=== PATIENT | female | born 1975 | race Caucasian/White ===

== ENCOUNTER 2022-11-23 04:37 | Emergency (ER) | payer OTHER, SELFPAY ==
[2022-11-23 04:42] VITALS: PULSE 86; RESP 21; TEMP 37.2; O2SAT 100; BMI 25.0
[2022-11-23 05:02] VITALS: O2SAT 100
--- NOTE | 2022-11-23 05:02 | CRLHL7_ITS ---
For Patients: As a result of the Century Cures Act, medical imaging exams and procedure reports are released immediately into your electronic medical record. You may view this report before your referring provider. If you have questions, please contact your health care provider. INDICATION: Left mid low abdominal pain COMPARISON: None TECHNIQUE: CT examination of the abdomen and pelvis was performed following the uneventful intravenous administration of 74 cc of Isovue 370. Thin section axial images were obtained from the lung bases through the pubic symphysis. Oral contrast was not administered. Please note that all CT scans at this facility use dose modulation, iterative reconstruction, and/or weight-based dosing when appropriate to reduce radiation dose to as low as reasonably achievable. FINDINGS: LUNG BASES: The lung bases as visualized appear normal.The heart size is normal at the lung bases. LIVER/BILIARY SYSTEM:The liver is normal in size and configuration. There is no focal mass and there is no intra- or extra hepatic biliary ductal dilatation.Steatosis. Surgically absent gallbladder ADRENALS: Normal KIDNEYS, URETERS and BLADDER:No visible internal calculi. Left-sided obstructive uropathy due to a 5 millimeter calcified calculus in the middle 3rd of the left ureter. SPLEEN:Normal appearance. PANCREAS: Appears normal. RETROPERITONEUM and MESENTERY: There is no mass, adenopathy or aortic aneurysm. GASTROINTESTINAL SYSTEM: There is no evidence of diverticulitis, colitis, mechanical obstruction, or appendicitis. The small bowel as visualized appears normal. PELVIS: No mass, adenopathy or free fluid. OSSEOUS STRUCTURES and ABDOMINAL WALL: There is an age-appropriate appearance of the osseous structures.No significant abdominal wall defect. OTHER: No free fluid or free air. IMPRESSION: No visible intrarenal calculi. Left-sided obstructive uropathy due to a 5 millimeter calcified calculus in the middle 3rd of the left ureter. Please note that all CT scans at this facility use dose modulation, iterative reconstruction, and/or weight-based dosing when appropriate to reduce radiation dose to as low as reasonably achievable. Dictated by Liam Werner MD @ 11/23/2022 6:16:19 AM (Electronically Signed)
[2022-11-23 05:04] VITALS: BP 139/72; PULSE 72; RESP 16; O2SAT 100
[2022-11-23] MEDS: KETOROLAC 30 MG/ML inj IVP (05:16)
[2022-11-23] MEDS: 0.9 % SODIUM CHLORIDE 1000 ml 1,000 ML IV (05:16)
[2022-11-23] MEDS: fentaNYL 100 MCG/2 ML inj 50 MCG IVP (05:17)
[2022-11-23 05:24] VITALS: PULSE 74; O2SAT 100
[2022-11-23 05:39] LABS: Basophils Absolute Auto 0.03 K/uL (0.00-0.30); Basophils Percent Auto 0.6 % (0.0-3.0); Eosinophils Absolute Auto 0.16 K/uL (0.00-0.50); Eosinophils Percent Auto 3.1 % (0.0-7.0); Hematocrit 40.1 % (33.0-51.0); Hemoglobin* 13.9 gm/dL (12.0-16.0); Immature Granulocytes Abs Auto 0.05 K/uL (0.00-0.30); Lymphocytes Absolute Auto 1.19 K/uL (0.90-2.90); Lymphocytes Percent Auto 23.1 % (20-44); Mean Corpuscular HGB Conc 35 gm/dL (32-36); Mean Corpuscular Hemoglobin 30 pg (26-34); Mean Corpuscular Volume 86 fL (80-100); Monocytes Percent Auto 7.9 % (0.0-11.0); Neutrophils Absolute Auto 3.32 K/uL (1.7-7.0); Neutrophils Percent Auto 64.3 % (42.0-72.0); Platelet Count* 292 K/uL (140-440); RDW Coefficient of Variation % 12.6 % (11.5-15.5); Red Blood Count 4.68 m/uL (4.00-5.20); White Blood Count* 5.16 K/uL (4.50-11.00)
[2022-11-23 05:40] LABS: Slide Review Reflex No
[2022-11-23 05:41] LABS: Chloride* 109 mmol/L (96-114); Potassium* 3.6 mmol/L (3.6-5.1); Sodium* 139 mmol/L (135-149)
[2022-11-23 05:44] LABS: Creatinine* 0.8 mg/dL (0.5-1.5); Est. Creatinine Clearance* 79.91; Estimated Glomerular Filt Rate 93 ml/min
[2022-11-23 05:45] LABS: Blood Urea Nitrogen* 16 mg/dL (5-24); Calcium* 9.7 mg/dL (8.4-10.6); Carbon Dioxide* 21 mmol/L (20-32); Glucose* 113 mg/dL (60-115)
[2022-11-23 05:47] LABS: D Dimer Quantitative* 0.47 ug/ml (0.00-0.50)
[2022-11-23 05:48] LABS: C Reactive Protein* 0.8 mg/dL (0.5-1.0)
[2022-11-23] MEDS: TAMSULOSIN HCL 0.4 MG CAPSULE PO (06:36)
--- NOTE | 2022-11-23 06:59 | ED.NURSE ---
gave strainer to pt for home use. no questions upon discharge.
--- NOTE | 2022-11-24 09:45 | ED_ITS ---
HPI - Abdominal Pain General Chief Complaint: Abdominal Pain Stated Complaint: abdominal pain on left tahira Time Seen by Provider: 11/23/22 04:54 History of Present Illness HPI narrative: 47-year-old woman presenting with severe abdominal pain. Feels like she is giving . First episode of this pain was yesterday morning which spontaneous resolved and now is occurring again this early a.m. the next day. No hematuria dysuria frequency urgency noted. No fevers. Tried treatment with a heating pad at with minimal relief. Does have a history of ovarian cyst. Related Data Previous Rx's Medication Instructions Recorded oxycodone-acetaminophen 5 mg-325 1 - 2 tab PO Q4H PRN pain #15 tabs 11/23/22 mg tablet (Percocet) tamsulosin 0.4 mg capsule (Flomax) 0.4 mg PO DAILY #10 caps 11/23/22 Allergies Allergy/AdvReac Type Severity Reaction Status Date / Time Penicillins AdvReac Intermediate Rash Verified 11/23/22 04:45 Review of Systems Status of ROS Reports: 10 or more systems reviewed and unremarkable except as noted in History and below PFSH PFS Surgical History History of cholecystectomy Exam Narrative: Exam Narrative: Eyes closed. Clearly trying to control her breathing in apparent discomfort. Skin is warm and dry. Extremities well perfused without edema. Lungs are clear. Heart in a regular rate and rhythm. Abdomen normoactive bowel sounds is soft and mildly uncomfortable to palpation in the left mid abdomen. No masses appreciated. Cranial nerves 2-12 look to be intact. Const: Documenting provider has reviewed patient's vital signs: yes Course Vital Signs Vital signs: Initial Vital Signs Temperature 99.0 F 11/23/22 04:42 Temperature Source Temporal Artery Scan 11/23/22 04:42 Pulse Rate 86 11/23/22 04:42 Pulse Rhythm 11/23/22 04:42 Pulse Strength 3+ Normal 11/23/22 04:42 Respiratory Rate 21 11/23/22 04:42 Pulse Oximetry 100 11/23/22 04:42 Oxygen Delivery Method 11/23/22 04:42 Vital Signs Temperature 99.0 F 11/23/22 04:42 Pulse Rate 86 11/23/22 04:42 Respiratory Rate 21 11/23/22 04:42 Pulse Oximetry 100 11/23/22 04:42 Oxygen Delivery Method 11/23/22 04:42 Temperature 99.0 F 11/23/22 04:42 Pulse Rate 74 11/23/22 05:24 Respiratory Rate 16 11/23/22 05:04 Blood Pressure 139/72 11/23/22 05:04 Pulse Oximetry 100 11/23/22 05:24 Oxygen Delivery Method 11/23/22 05:04 MDM - Abdominal Pain MDM Narrative Medical decision making narrative: Has also pleuritic nature to pain. I think checking D-dimer would be helpful h ere. Would image though also given intensity of this discomfort. Differential would include pulmonary embolus, low-lying pneumonia, constipation, diverticular disease/diverticulitis, ureteral stone, UTI CT imaging by my read did show upper left-sided ureteral stone with hydronephrosis. Given normal saline and ketorolac. Overall markedly improved. Later tamsulosin following results of CT imaging. IMPRESSION: No visible intrarenal calculi. Left-sided obstructive uropathy due to a 5 millimeter calcified calculus in the middle 3rd of the left ureter. Lab Data Attestation: I reviewed the patient's lab results. Labs: Lab Results 11/23/22 11/23/22 11/23/22 Range/Units 04:48 04:48 04:48 WBC 5.16 (4.50-11.00) K/uL RBC 4.68 (4.00-5.20) m/uL Hgb 13.9 (12.0-16.0) gm/dL Hct 40.1 (33.0-51.0) % MCV 86 (80-100) fL MCH 30 (26-34) pg MCHC 35 (32-36) gm/dL RDW Coeff of Connor 12.6 (11.5-15.5) % Plt Count 292 (140-440) K/uL Neut % (Auto) 64.3 (42.0-72.0) % Lymph % (Auto) 23.1 (20-44) % [place] % (Auto) 7.9 (0.0-11.0) % Eos % (Auto) 3.1 (0.0-7.0) % Baso % (Auto) 0.6 (0.0-3.0) % Neut # (Auto) 3.32 (1.7-7.0) K/uL Lymph # (Auto) 1.19 (0.90-2.90) K/uL [place] # (Auto) 0.40 (0.00-0.90) K/UL Eos # (Auto) 0.16 (0.00-0.50) K/uL Baso # (Auto) 0.03 (0.00-0.30) K/uL D-Dimer Quant (PE/DVT) 0.47 (0.00-0.50) ug/ml Sodium 139 (135-149) mmol/L Potassium 3.6 (3.6-5.1) mmol/L Chloride 109 (96-114) mmol/L Carbon Dioxide 21 (20-32) mmol/L BUN 16 (5-24) mg/dL Creatinine 0.8 (0.5-1.5) mg/dL Estimated Creat Clear 79.91 Estimated GFR 93 ml/min Glucose 113 (60-115) mg/dL Calcium 9.7 (8.4-10.6) mg/dL C-Reactive Protein 0.8 (0.5-1.0) mg/dL Discharge Plan Discharge Clinical Impression: Ureteral colic, Left ureteral calculus Patient Disposition: Home w/ Parent or Adult Condition: Improved Instructions: Ureteral Stones (ED) Additional Instructions: Generally stay well hydrated. Strain urine over this next week. Can be helpful to analyze the stone if can catch it. Can take up to 800 mg of ibuprofen per dose. This can be combined with the Percocet if needed. Be seen/return for uncontrolled pain, repeated vomiting, fever, pain continuing beyond 4 days --at this point would consider reimaging of some sort. Activity Level: No Restrictions Discharge Diet: Regular Prescriptions: New tamsulosin [Flomax] 0.4 mg capsule 0.4 mg PO DAILY Qty: 10 0RF oxycodone-acetaminophen [Percocet] 5-325 mg tablet 1 - 2 tab PO Q4H PRN (Reason: pain) Qty: 15 0RF Follow Up/Referrals: Kailey Dang MD [Primary Care Provider] - Stand Alone Forms: MyHealth Info Instructions
== END 2022-11-23 06:59 | disposition home or self-care (01) ==
PROVIDERS: Emergency Provider Family Medicine; PCP Obstetrics & Gynecology
DX: N20.1 Calculus of ureter (principal)
CPT/HCPCS: 36415; 74177; 80048; 81001; 81003; 84703; 85025; 85379; 86140; 94761; 96361; 96374; 96375; 99284; 99285; A9270; J1885; J3010; J7030; Q9967

== ENCOUNTER 2024-03-28 14:55 | Outpatient (CLI) | payer OTHER, SELFPAY ==
--- NOTE | 2024-03-28 15:00 | CRLHL7_ITS ---
For Patients: As a result of the Century Cures Act, medical imaging exams and procedure reports are released immediately into your electronic medical record. You may view this report before your referring provider. If you have questions, please contact your health care provider. BILATERAL SCREENING MAMMOGRAM WITH COMPUTER-AIDED DETECTION AND TOMOSYNTHESIS TECHNIQUE: CC and MLO views were obtained. These mammographic images have been obtained using full-field digital technique. These mammographic images were interpreted with the benefit of computer-aided detection. Breast tomosynthesis was used in this interpretation. COMPARISON FILM: 02/19/23, 12/05/21, 09/25/20. FINDINGS: There are scattered areas of fibroglandular density. IMPRESSION: There is no radiographic evidence for malignancy. ASSESSMENT: BI-RADS Category 1: Negative RECOMMENDATION: Routine screening mammogram in 1 year. A lay language report of this examination will be provided to the patient. PIERRE GALLEGO M.D. Diagnostic Radiologist [email or web address] Transcribed: 11:[address]/Dictated by: Pierre Gallego MD @ 04/04/2024 10:15:00 AM (Electronically Signed)
== END 2024-03-28 14:56 | disposition home or self-care (01) ==
LOC: MAMMO 14:55
PROVIDERS: Visit Provider Physician Assistant
DX: Z12.31 Encounter for screening mammogram for malignant neoplasm of breast (principal)
CPT/HCPCS: 77063; 77067

== ENCOUNTER 2025-08-06 13:31 | Outpatient (CLI) | payer OTHER, SELFPAY ==
--- NOTE | 2025-08-06 13:40 | CRLHL7_ITS ---
For Patients: As a result of the Century Cures Act, medical imaging exams and procedure reports are released immediately into your electronic medical record. You may view this report before your referring provider. If you have questions, please contact your health care provider. INDICATION: BILATERAL SCREENING MAMMOGRAM, ASYMPTOMATIC 50 Y/O FEMALE COMPARISON: 03/28/2024, 02/19/2023, 12/05/2021 TECHNIQUE: Digital mammogram in CC and MLO projections including computer-aided detection (CAD) and tomosynthesis. BREAST COMPOSITION: There are scattered areas of fibroglandular density. FINDINGS: No suspicious findings. ASSESSMENT: BI-RADS 1 Negative RECOMMENDATION: Annual screening mammogram. A lay language report of this examination will be provided to the patient. Dictated by: Pierre Diallo MD @ 08/07/2025 09:54:47 (Electronically Signed)
== END 2025-08-06 13:32 | disposition home or self-care (01) ==
LOC: MAMMO 13:32
PROVIDERS: Visit Provider Physician Assistant
DX: Z12.31 Encounter for screening mammogram for malignant neoplasm of breast (principal)
CPT/HCPCS: 77063; 77067

== ENCOUNTER 2025-08-08 17:35 | Outpatient (CLI) | payer OTHER, SELFPAY ==
--- NOTE | 2025-08-08 17:30 | CRLHL7_ITS ---
For Patients: As a result of the Century Cures Act, medical imaging exams and procedure reports are released immediately into your electronic medical record. You may view this report before your referring provider. If you have questions, please contact your health care provider. CLINICAL HISTORY: MENORRHAGIA, PAIN COMPARISON: None. TECHNIQUE: 2D lujan-scale ultrasound. In addition, color Doppler and spectral Doppler analysis was performed of the pelvis using a transabdominal and transvaginal approach. Transvaginal imaging performed to better visualize the endometrial stripe and ovaries. FINDINGS: The uterus measures 7.5 x 3.1 x 4.0 cm. The endometrial lining measures 11.0 mm in thickness. Small myometrial cysts are present in the uterine fundus. The right ovary measures 2.1 x 1.4 x 1.6 cm in size and the left ovary is absent. The right ovary demonstrates normal arterial and venous blood flow on color Doppler and spectral Doppler analysis. There are no suspicious fluid collections within the cul-de-sac. IMPRESSION: Endometrial thickness 11 millimeters. No endometrial fluid. Dictated by Pierre Diallo MD @ 08/08/2025 8:36:19 PM (Electronically Signed)
== END 2025-08-08 17:36 | disposition home or self-care (01) ==
LOC: US 17:35
PROVIDERS: Visit Provider Physician Assistant
DX: N92.0 Excessive and frequent menstruation with regular cycle (principal); R93.89 Abnormal findings on diagnostic imaging of other specified body structures
CPT/HCPCS: 76830; 76856; 93976

== ENCOUNTER 2025-08-13 07:29 | Outpatient (CLI) | payer OTHER, SELFPAY | END 2025-08-13 07:30 | disposition home or self-care (01) | LOC: NFLDREF 08-16 09:55 | PROVIDERS: Visit Provider Physician Assistant | DX: Z13.9 Encounter for screening, unspecified (principal); N92.0 Excessive and frequent menstruation with regular cycle | CPT/HCPCS: 80061; 82947; 84443 ==